=== PATIENT | male | born 1995 | race Caucasian/White ===

== ENCOUNTER 2021-02-05 13:42 | Emergency (ER) | payer MEDICAID ==
[~2021-02-05] VITALS: Ht 193 cm; Wt 118.2 kg
[2021-02-05 16:05] VITALS: BP 120/80
[2021-02-05] MEDS ORDERED: LAMO200T10 PO (16:16)
[2021-02-05] MEDS ORDERED: HALO5TAB PO (16:16)
[2021-02-05] MEDS ORDERED: ESCI20TA15 PO (16:16)
[2021-02-05] MEDS ORDERED: GABA-530 PO (16:16)
[2021-02-05] MEDS ORDERED: CLOZ200T PO (16:16)
== END 2021-02-05 16:27 | disposition home or self-care (01) ==
LOC: ER 13:43
DX: F20.9 Schizophrenia, unspecified (principal); R11.2 Nausea with vomiting, unspecified; R42 Dizziness and giddiness; Z56.0 Unemployment, unspecified
CPT/HCPCS: 99281

== ENCOUNTER 2021-06-22 12:28 | Emergency (ER) | payer MEDICAID ==
[~2021-06-22] VITALS: Ht 190.5 cm; Wt 109.1 kg
[~2021-06-22 12:28] MED LIST: CLOZ200T PO; ESCI20TA15 PO; GABA-530 PO; HALO5TAB PO; LAMO200T10 PO
[2021-06-22 12:30] VITALS: BP 117/56
[2021-06-22] MEDS ORDERED: CEPH-585 PO ×2 (15:37→15:41)
== END 2021-06-22 16:06 | disposition home or self-care (01) ==
LOC: ER 12:28
DX: S62.314A Displaced fracture of base of fourth metacarpal bone, right hand, initial encounter for closed fracture (principal); S00.81XA Abrasion of other part of head, initial encounter; F17.200 Nicotine dependence, unspecified, uncomplicated; Z72.89 Other problems related to lifestyle; Z56.0 Unemployment, unspecified; Z79.2 Long term (current) use of antibiotics; Z79.899 Other long term (current) drug therapy; W22.8XXA Striking against or struck by other objects, initial encounter; Y93.89 Activity, other specified; Y92.89 Other specified places as the place of occurrence of the external cause; Y99.8 Other external cause status
CPT/HCPCS: 29125; 73110; 73130; 99284